=== PATIENT | male | born 1960 | race Caucasian/White ===

== ENCOUNTER → 2021-10-22 11:37 | Outpatient (REF) | payer BC, SELFPAY | LOC: ANHLAB 11:37 | PROVIDERS: PCP Internal Medicine; Visit Provider Nurse Practitioner | DX: C44.219 Basal cell carcinoma of skin of left ear and external auricular canal (principal) | CPT/HCPCS: 88305; 88341; 88342 ==

== ENCOUNTER 2022-01-06 07:00 | Outpatient (NON) | payer BC, SELFPAY | END 2022-01-06 07:01 | disposition home or self-care (01) | LOC: ANHLAB 01-13 16:18 | PROVIDERS: PCP Internal Medicine; Visit Provider Surgery Plastic and Reconstructive Surgery | DX: C44.219 Basal cell carcinoma of skin of left ear and external auricular canal (principal) | CPT/HCPCS: 88305; 88331 ==

== ENCOUNTER 2022-04-08 09:00 | Outpatient (NON) | payer BC, SELFPAY | END 2022-04-08 09:01 | disposition home or self-care (01) | PROVIDERS: PCP Internal Medicine; Visit Provider Nurse Practitioner | DX: D22.62 Melanocytic nevi of left upper limb, including shoulder (principal) | CPT/HCPCS: 88305 ==

== ENCOUNTER 2022-04-29 13:38 | Outpatient (NON) | payer BC, SELFPAY | END 2022-04-29 13:39 | disposition home or self-care (01) | LOC: ANHLAB 04-30 13:40 | PROVIDERS: PCP Internal Medicine; Visit Provider Nurse Practitioner | DX: D22.62 Melanocytic nevi of left upper limb, including shoulder (principal) | CPT/HCPCS: 88305 ==